=== PATIENT | female | born 1940 | race African-American/Black ===

== ENCOUNTER 2020-01-24 21:36 | Inpatient (IN) | payer OTHER ==
[~2020-01-24] VITALS: Ht 167.6 cm; Wt 138.3 kg
[2020-01-24] MEDS ORDERED: PREDNISONE 20MG TABLET PO STA (22:30)
[2020-01-24] MEDS ORDERED: MAGNESIUM 2 G PREMIX 50 ML IV ONE (22:30)
[2020-01-24] MEDS ORDERED: IPRATROPIUM BROMIDE (0.02%) 0.5MG/2.5ML NEB HHN STA (22:30)
[2020-01-24] MEDS ORDERED: ALBUTEROL (0.083%) 2.5MG/3ML NEB HHN STA (22:30)
[2020-01-24 23:18] LABS: BASOPHILS % 0.8 % (0.0-2.0); EOSINOPHILS % 2.2 % (0.0-5.0); HEMOGLOBIN. 8.2 g/dL (12.0-16.0); LYMPHOCYTES % 7.6 % (20.0-50.0); MEAN CORPUSCULAR VOLUME 82.3 fL (81.0-99.0); MEAN PLATELET VOLUME 6.6 fl (7.4-10.4); MONOCYTES % 5.4 % (2.0-8.0); PLATELET 423 x1000/uL (130-400); RED BLOOD CELL COUNT 3.04 mill/uL (4.2-5.4); RED CELL DISTRIBUTION WIDTH 17.4 % (11.6-14.6)
[2020-01-24 23:29] LABS: D-DIMER 2.19 mg/L FEU (<0.50); PARTIAL THROMBOPLASTIN TIME 20.7 sec (23.4-31.0); PROTHROMBIN TIME 10.8 sec (9.6-11.0)
[2020-01-25] VITALS (7 sets, daily range): BP systolic 132–194; BP diastolic 61–88
[2020-01-25] MEDS ORDERED: GUAIFENESIN 200MG/10ML SUGAR FREE UDC PO PRN (00:15)
[2020-01-25] MEDS ORDERED: ONDANSETRON HCL 4MG/2ML INJ IV PRN (00:15)
[2020-01-25] MEDS ORDERED: IPRATROPIUM/ALBUTEROL 0.5-3(2.5)MG/3ML NEB NEB PRN (00:15)
[2020-01-25] MEDS ORDERED: MAGNESIUM/ALUMINUM HYDROXIDE/SIMETHICONE 30ML UDC PO PRN (00:15)
[2020-01-25] MEDS ORDERED: ACETAMINOPHEN 325MG TABLET PO PRN (00:15)
[2020-01-25] MEDS ORDERED: DOCUSATE SODIUM 100MG CAPSULE PO PRN (00:15)
[2020-01-25 00:29] LABS: CHLORIDE 117 mEq/L (98-107)
[2020-01-25] MEDS ORDERED: FUROSEMIDE 100MG/10ML VIAL IV SCH (01:02)
[2020-01-25] MEDS ORDERED: ALBUTEROL (0.083%) 2.5MG/3ML NEB HHN SCH (01:15)
[2020-01-25] MEDS ORDERED: DEXTROSE 50% WATER 50ML SYRINGE IV SCH ×3 (01:15→10:30)
[2020-01-25] MEDS ORDERED: SODIUM BICARBONATE 8.4% 1 MEQ/ML 50ML SYR IV SCH ×3 (01:15→09:30)
[2020-01-25] MEDS ORDERED: CALCIUM CHLORIDE 1GM/10ML SYR IV SCH ×2 (01:15→03:30)
[2020-01-25] MEDS ORDERED: INSULIN REGULAR (HUMULIN R) 300UNITS/3ML IV SCH (01:15)
[2020-01-25] MEDS: CLONIDINE 0.1MG TABLET PO PRN (02:55)
[2020-01-25] MEDS: CEFTRIAXONE 1 G PREMIX 50 ML IV SCH (03:08)
[2020-01-25] MEDS ORDERED: FUROSEMIDE 100MG/10ML VIAL IVP SCH (03:15)
[2020-01-25] MEDS ORDERED: INSULIN REGULAR (HUMULIN R) UD 100 UNITS/ML SYR SUBCUT SCH (03:30)
[2020-01-25] MEDS: AZITHROMYCIN 500 MG in DEXT 5% WATER 250 ML IV SCH (04:14)
[2020-01-25 07:45] LABS: HEMATOCRIT. 25.8 % (36.0-48.0); HEMOGLOBIN. 8.2 g/dL (12.0-16.0); MEAN CORPUSCULAR HEMOGLOBIN 26.3 pg (28.0-32.0); MEAN CORPUSCULAR VOLUME 82.5 fL (81.0-99.0); MEAN PLATELET VOLUME 6.5 fl (7.4-10.4); PLATELET 426 x1000/uL (130-400); RED BLOOD CELL COUNT 3.13 mill/uL (4.2-5.4); RED CELL DISTRIBUTION WIDTH 17.6 % (11.6-14.6)
[2020-01-25 08:09] LABS: CREATINE KINASE MB FRACTION 1.9 ng/mL (0.5-3.6)
[2020-01-25] MEDS ORDERED: SODIUM POLYSTYRENE SULFONATE 15 G/60 ML BOT PO SCH (09:30)
[2020-01-25] MEDS ORDERED: CALCIUM GLUCONATE 100MG/ML 10ML VIAL IV ONE (09:30)
[2020-01-25] MEDS ORDERED: LACTULOSE 20G/30ML UDC PO SCH (09:30)
[2020-01-25] MEDS ORDERED: CALCIUM GLUCONATE 1000 MG in DEXTROSE 5% WATER 100 ML IV SCH (10:30)
[2020-01-25] MEDS ORDERED: INSULIN REGULAR (HUMULIN R) UD 100 UNITS/ML SYR IV SCH (10:30)
[2020-01-25 10:31] LABS: PLATELET ESTIMATE INCREASED
[2020-01-25] MEDS ORDERED: DEXTROSE 50% WATER 50ML SYRINGE IV ONE (11:05)
[2020-01-25] MEDS: FUROSEMIDE 100MG/10ML VIAL IVP SCH ×2 (12:18→17:57)
[2020-01-25] MEDS: CITRIC ACID/SODIUM CITRATE SOLN 30ML UDC PO SCH ×2 (13:00→17:58)
[2020-01-25 16:25] LABS: CLARITY URINE CLEAR (CLEAR); COLOR URINE YELLOW (YELLOW); KETONES URINE NEGATIVE (NEGATIVE); LEUKOCYTE ESTERASE URINE 1+ (NEGATIVE); NITRITE URINE NEGATIVE (NEGATIVE); OCCULT BLOOD URINE 2+ (NEGATIVE); PROTEIN URINE NEGATIVE (NEGATIVE); SPECIFIC GRAVITY URINE 1.012 (1.005-1.030); UROBILINOGEN URINE 0.2 E.U./dL (0.2-1.0)
[2020-01-25 16:46] LABS: *BARBITURATES SCREEN URINE NEGATIVE (NEGATIVE)
[2020-01-25 16:47] LABS: *AMPHETAMINES SCREEN URINE NEGATIVE (NEGATIVE); *BENZODIAZEPINES SCREEN URINE NEGATIVE (NEGATIVE); *COCAINE SCREEN URINE NEGATIVE (NEGATIVE); CANNABINOID URINE SCREEN NEGATIVE (NEGATIVE); METHADONE URINE SCREEN NEGATIVE (NEGATIVE); OPIATES URINE SCREEN NEGATIVE (NEGATIVE); PHENCYCLIDINE URINE SCREEN NEGATIVE (NEGATIVE)
[2020-01-25 17:40] LABS: CREATINE KINASE MB FRACTION 2.4 ng/mL (0.5-3.6)
[2020-01-25] MEDS ORDERED: SODIUM BICARBONATE 8.4% 1 MEQ/ML 50ML SYR IV NR (18:19)
[2020-01-25] MEDS ORDERED: DEXTROSE 50% WATER 50ML SYRINGE IV NR (18:19)
[2020-01-25] MEDS ORDERED: DEXTROSE 50% WATER 50ML SYRINGE IV PRN (18:30)
[2020-01-25 19:12] LABS: TOTAL IRON BINDING CAPACITY 250 ug/dL (250-450)
[2020-01-25 19:24] LABS: FOLIC ACID (FOLATE) SERUM 11.6 ng/mL (>5.38)
[2020-01-25] MEDS ORDERED: INSULIN REGULAR (HUMULIN R) UD 100 UNITS/ML SYR IV NR (19:30)
[2020-01-25 20:46] LABS: BG BASE EXCESS -6.6 mmol/L (-2.0-2.0); BG CARBOXYHEMOGLOBIN 0.3 % (0.5-1.5); BG DEOXYHEMOGLOBIN 2.4 % (0.0-5.0); BG FRACTION INSPIRED OXYGEN 32; BG METHEMOGLOBIN 0.1 % (0.0-1.5); BG OXYGEN SATURATION 97.6 % (92.0-98.5); BG OXYHEMOGLOBIN 97.2 % (94.0-97.0); BG PCO2 38.2 mmHg (35.0-45.0); BG PH 7.314 (7.350-7.450); BG PO2 115.5 mmHg (75.0-100.0); BG SAMPLE SITE RIGHT RADIAL; BG TOTAL HEMOGLOBIN 10.2 g/dL (12.0-18.0); BG VENT MODE NASAL CANNULA
[2020-01-25] MEDS: ENOXAPARIN 40MG/0.4ML SYR SUBCUT SCH (21:46)
[2020-01-25] MEDS: INSULIN LISPRO 100 UNITS/ML SUBCUT SCH (21:46)
[2020-01-25] MEDS: BLOOD SUGAR DIAGNOSTIC STRIP TEST SCH (21:46)
[2020-01-26] VITALS (41 sets, daily range): BP systolic 113–174; BP diastolic 47–93
[2020-01-26] MEDS: IPRATROPIUM/ALBUTEROL 0.5-3(2.5)MG/3ML NEB HHN SCH (00:15)
[2020-01-26] MEDS: BUDESONIDE 0.5MG/2ML NEB HHN SCH ×2 (00:15→12:23)
[2020-01-26] MEDS: CEFTRIAXONE 1 G PREMIX 50 ML IV SCH (01:55)
[2020-01-26] MEDS: AZITHROMYCIN 500 MG in DEXT 5% WATER 250 ML IV SCH (03:08)
[2020-01-26 07:13] LABS: BASOPHILS % 0.5 % (0.0-2.0); EOSINOPHILS % 0.8 % (0.0-5.0); HEMOGLOBIN. 7.9 g/dL (12.0-16.0); LYMPHOCYTES % 14.5 % (20.0-50.0); MEAN CORPUSCULAR HEMOGLOBIN 26.5 pg (28.0-32.0); MEAN CORPUSCULAR VOLUME 80.4 fL (81.0-99.0); MEAN PLATELET VOLUME 6.6 fl (7.4-10.4); MONOCYTES % 8.9 % (2.0-8.0); NEUTROPHILS % 75.3 % (40.0-76.0); PLATELET 398 x1000/uL (130-400); RED BLOOD CELL COUNT 2.98 mill/uL (4.2-5.4); RED CELL DISTRIBUTION WIDTH 17.7 % (11.6-14.6)
[2020-01-26] MEDS: INSULIN LISPRO 100 UNITS/ML SUBCUT SCH ×4 (08:00→21:49)
[2020-01-26] MEDS: BLOOD SUGAR DIAGNOSTIC STRIP TEST SCH ×4 (08:00→21:46)
[2020-01-26] MEDS: CITRIC ACID/SODIUM CITRATE SOLN 30ML UDC PO SCH (09:24)
[2020-01-26] MEDS: FUROSEMIDE 40MG/4ML VIAL IV SCH ×2 (09:54→17:07)
[2020-01-26] MEDS ORDERED: SODIUM POLYSTYRENE SULFONATE 15 G/60 ML BOT PO NR (12:00)
[2020-01-26] MEDS ORDERED: FLUTICASONE PROPIONATE 50MCG/SPRAY BOTTLE BOTHNSTRLS SCH (21:00)
[2020-01-26] MEDS: ENOXAPARIN 40MG/0.4ML SYR SUBCUT SCH (21:47)
[2020-01-27] VITALS (23 sets, daily range): BP systolic 125–185; BP diastolic 55–99
[2020-01-27 06:00] LABS: BASOPHILS % 0.8 % (0.0-2.0); HEMATOCRIT. 26.2 % (36.0-48.0); HEMOGLOBIN. 8.6 g/dL (12.0-16.0); LYMPHOCYTES % 25.2 % (20.0-50.0); MEAN CORPUSCULAR HEMOGLOBIN 26.5 pg (28.0-32.0); MEAN CORPUSCULAR VOLUME 80.4 fL (81.0-99.0); MEAN PLATELET VOLUME 6.4 fl (7.4-10.4); PLATELET 408 x1000/uL (130-400); RED BLOOD CELL COUNT 3.26 mill/uL (4.2-5.4); RED CELL DISTRIBUTION WIDTH 17.6 % (11.6-14.6)
[2020-01-27] MEDS: BLOOD SUGAR DIAGNOSTIC STRIP TEST SCH ×3 (07:30→17:30)
[2020-01-27] MEDS: BUDESONIDE 0.5MG/2ML NEB HHN SCH (07:56)
[2020-01-27] MEDS: IPRATROPIUM/ALBUTEROL 0.5-3(2.5)MG/3ML NEB HHN SCH ×2 (07:56→16:44)
[2020-01-27] MEDS ORDERED: LORATADINE 10MG TABLET PO SCH (09:00)
[2020-01-27] MEDS: FUROSEMIDE 40MG/4ML VIAL IV SCH ×2 (09:15→17:39)
[2020-01-27] MEDS: INSULIN LISPRO 100 UNITS/ML SUBCUT SCH ×3 (09:27→17:39)
[2020-01-27] MEDS ORDERED: PROMETHAZINE/DEXTROMETHORPHAN 6.25-15MG/5ML BOTTLE 120ML PO PRN (12:00)
[2020-01-27] MEDS: CLONIDINE 0.1MG TABLET PO PRN (18:30)
== END 2020-01-27 21:40 | disposition short-term general hospital (02) | DRG 291 ==
LOC: ER 21:36 → MICUSO 23:14 → ENRESERV 23:58 → 7WST 01-25 02:34 → 5EST 01-25 22:56
PROVIDERS: ADMIT Internal Medicine; ATTEND Internal Medicine
DX: I13.0 Hypertensive heart and chronic kidney disease with heart failure and stage 1 through stage 4 chronic kidney disease, or unspecified chronic kidney disease (principal); J96.00 Acute respiratory failure, unspecified whether with hypoxia or hypercapnia; I50.43 Acute on chronic combined systolic (congestive) and diastolic (congestive) heart failure; N17.9 Acute kidney failure, unspecified; E87.2 Acidosis; Z68.42 Body mass index [BMI] 45.0-49.9, adult; J45.20 Mild intermittent asthma, uncomplicated; E87.5 Hyperkalemia; I16.0 Hypertensive urgency; E11.65 Type 2 diabetes mellitus with hyperglycemia; D64.9 Anemia, unspecified; J00 Acute nasopharyngitis [common cold]; E66.01 Morbid (severe) obesity due to excess calories; Z20.828 Contact with and (suspected) exposure to other viral communicable diseases; N18.9 Chronic kidney disease, unspecified; E11.22 Type 2 diabetes mellitus with diabetic chronic kidney disease; Z03.818 Encounter for observation for suspected exposure to other biological agents ruled out; Z79.84 Long term (current) use of oral hypoglycemic drugs; Z90.710 Acquired absence of both cervix and uterus
CPT/HCPCS: 36415; 36600; 71045; 76770; 78580; 80048; 80053; 80061; 80305; 81003; 82375; 82550; 82553; 82570; 82607; 82728; 82746; 82805; 82962; 83036; 83540; 83550; 83615; 83735; 83880; 84132; 84145; 84156; 84484; 85025; 85044; 85379; 86140; 93005; 93306; 96365; 99285; J0456; J0610; J0696; J1650; J1815; J1940; J3475; J3490; J7060; J7512; J7626; U0003-CS

== ENCOUNTER 2020-05-24 14:15 | Emergency (ER) | payer MEDICARE, OTHER ==
[~2020-05-24] VITALS: Ht 165.1 cm; Wt 98.0 kg
[2020-05-24] MEDS ORDERED: METHYLPREDNISOLONE SOD SUCC 125 MG/2 ML VIAL IV STA (14:31)
[2020-05-24] MEDS ORDERED: MAGNESIUM 2 G PREMIX 50 ML IV STA (14:31)
[2020-05-24] MEDS ORDERED: ALBUTEROL 6.7GM HFA INHALER ORI ONE (14:45)
[2020-05-24] MEDS ORDERED: AZITHROMYCIN 500 MG in DEXT 5% WATER 250 ML IV STA (14:47)
[2020-05-24] MEDS ORDERED: CEFTRIAXONE 1 G PREMIX 50 ML IV ONE (15:00)
[2020-05-24] MEDS ORDERED: ACETAMINOPHEN 325MG TABLET PO ONE (15:00)
[2020-05-24] MEDS ORDERED: SODIUM CHLORIDE 0.9% 1000ML BAG (SEPSIS BOLUS) IV ONE (15:00)
[2020-05-24 15:13] LABS: CHLORIDE 106 mEq/L (98-107)
[2020-05-24 15:15] LABS: HEMATOCRIT. 32.7 % (36.0-48.0); HEMOGLOBIN. 10.6 g/dL (12.0-16.0); MEAN CORPUSCULAR HEMOGLOBIN 25.9 pg (28.0-32.0); MEAN CORPUSCULAR VOLUME 79.9 fL (81.0-99.0); MEAN PLATELET VOLUME 7.3 fl (7.4-10.4); PLATELET 340 x1000/uL (130-400); RED BLOOD CELL COUNT 4.09 mill/uL (4.2-5.4); RED CELL DISTRIBUTION WIDTH 18.7 % (11.6-14.6)
[2020-05-24 15:17] LABS: CLARITY URINE CLOUDY (CLEAR); COLOR URINE YELLOW (YELLOW); KETONES URINE NEGATIVE (NEGATIVE); LEUKOCYTE ESTERASE URINE 3+ (NEGATIVE); NITRITE URINE POSITIVE (NEGATIVE); OCCULT BLOOD URINE 2+ (NEGATIVE); PROTEIN URINE TRACE (NEGATIVE); SPECIFIC GRAVITY URINE 1.015 (1.005-1.030); UROBILINOGEN URINE 0.2 E.U./dL (0.2-1.0)
[2020-05-24 15:24] LABS: CREATINE KINASE 65 IU/L (26-192)
[2020-05-24 15:41] LABS: D-DIMER 2.89 mg/L FEU (<0.50); INR 1.1; PROTHROMBIN TIME 11.3 sec (9.6-11.0)
[2020-05-24] MEDS ORDERED: FUROSEMIDE 20MG/2ML VIAL IVP ONE (16:30)
[2020-05-24 17:43] LABS: PLATELET ESTIMATE NORMAL
[2020-05-24] MEDS ORDERED: INSULIN LISPRO 100 UNITS/ML SUBCUT ONE (20:15)
[2020-05-24 21:17] VITALS: BP 148/76
== END 2020-05-24 21:40 | disposition short-term general hospital (02) ==
LOC: ER 14:33 → CANBEDREQ 22:13
DX: Z03.818 Encounter for observation for suspected exposure to other biological agents ruled out (principal); A41.9 Sepsis, unspecified organism; N39.0 Urinary tract infection, site not specified; S91.202A Unspecified open wound of left great toe with damage to nail, initial encounter; X58.XXXA Exposure to other specified factors, initial encounter; Y93.89 Activity, other specified; Y92.89 Other specified places as the place of occurrence of the external cause
CPT/HCPCS: 36415; 71045; 73660; 80053; 81003; 82550; 82728; 82962; 83605; 83615; 83690; 83880; 84145; 84484; 85025; 85379; 85384; 85610; 86140; 87040; 87077; 87086; 87186; 87635; 93005; 94640; 96365; 96367; 96368; 96372; 96375; 99291; C9803; J0456; J0696; J1815; J1940; J2930; J3475; J7030; J7060

== ENCOUNTER 2022-10-01 00:52 | Emergency (ER) | payer MEDICARE, OTHER ==
[~2022-10-01] VITALS: Ht 162.6 cm; Wt 118.0 kg
[~2022-10-01 00:52] MED LIST: ACET-2708 PO; ALBU18HF2 IH; ASPI-1406 MT; B12/1TAB PO; CYAN-33 MT; DIPH-892 PO; FERR236T3 MT; FURO40TA5 PO; GABA-532 PO; GLIP10TA10 MT; HYDR100T26 MT; OMEP20CA14 MT; SODI325T MT; VITA-261 PO
[2022-10-01 01:24] LABS: BASOPHILS % 0.8 % (0.0-2.0); EOSINOPHILS % 1.5 % (0.0-5.0); HEMATOCRIT. 29.3 % (36.0-48.0); HEMOGLOBIN. 9.3 g/dL (12.0-16.0); LYMPHOCYTES % 12.1 % (20.0-50.0); MEAN CORPUSCULAR HEMOGLOBIN 26.3 pg (28.0-32.0); MEAN CORPUSCULAR VOLUME 82.8 fL (81.0-99.0); MEAN PLATELET VOLUME 6.5 fl (7.4-10.4); MONOCYTES % 9.5 % (2.0-8.0); NEUTROPHILS % 76.1 % (40.0-76.0); PLATELET 330 x1000/uL (130-400); RED BLOOD CELL COUNT 3.54 mill/uL (4.2-5.4); RED CELL DISTRIBUTION WIDTH 20.6 % (11.6-14.6)
[2022-10-01 01:30] LABS: CHLORIDE 111 mEq/L (98-107)
[2022-10-01 01:41] LABS: ETHANOL BLOOD < 10 mg/dL
[2022-10-01 01:44] LABS: PROTHROMBIN TIME 11.2 sec (9.6-11.0)
[2022-10-01] MEDS ORDERED: FUROSEMIDE 40MG/4ML VIAL IV NR ×2 (02:30→04:30)
[2022-10-01] MEDS ORDERED: NITROGLYCERIN OINT 1GM/INCH UDPKT TD NR (02:30)
[2022-10-01] MEDS ORDERED: INSULIN REGULAR (HUMULIN R) 300UNITS/3ML VIAL SUBCUT NR (03:00)
[2022-10-01] MEDS ORDERED: ACETAMINOPHEN WITH CODEINE 300/30MG TABLET PO ONE (04:00)
[2022-10-01 07:40] VITALS: BP 137/59
== END 2022-10-01 08:15 | disposition short-term general hospital (02) ==
LOC: ER 00:54 → CANBEDREQ 11:26
DX: I11.0 Hypertensive heart disease with heart failure (principal); I50.9 Heart failure, unspecified; J45.909 Unspecified asthma, uncomplicated; E11.65 Type 2 diabetes mellitus with hyperglycemia; Z79.899 Other long term (current) drug therapy; E87.5 Hyperkalemia; Z20.822 Contact with and (suspected) exposure to COVID-19
CPT/HCPCS: 36415; 71045; 80053; 80320; 82962; 83690; 83880; 84484; 85025; 85610; 87426; 93005; 96372; 96374; 99285; C9803; J1815; J1940; G0480

== ENCOUNTER 2023-01-04 21:47 | Inpatient (IN) | payer OTHER ==
[~2023-01-04] VITALS: Ht 167.6 cm; Wt 115.7 kg
[~2023-01-04 21:47] MED LIST changes: -DIPH-892 PO; +DIPH-954 PO
[2023-01-04] MEDS ORDERED: MORPHINE SULFATE 2 MG/ML CPJ (NOT FOR IM USE) IV NR (23:30)
[2023-01-04] MEDS ORDERED: FUROSEMIDE 40MG/4ML VIAL IVP NR (23:30)
[2023-01-04 23:56] LABS: BASOPHILS % 0.6 % (0.0-2.0); EOSINOPHILS % 1.5 % (0.0-5.0); HEMOGLOBIN. 11.3 g/dL (12.0-16.0); LYMPHOCYTES % 10.6 % (20.0-50.0); MEAN CORPUSCULAR HEMOGLOBIN 26.1 pg (28.0-32.0); MEAN CORPUSCULAR VOLUME 80.9 fL (81.0-99.0); MEAN PLATELET VOLUME 6.4 fl (7.4-10.4); MONOCYTES % 7.6 % (2.0-8.0); NEUTROPHILS % 79.7 % (40.0-76.0); PLATELET 396 x1000/uL (130-400); RED BLOOD CELL COUNT 4.32 mill/uL (4.2-5.4); RED CELL DISTRIBUTION WIDTH 21.4 % (11.6-14.6)
[2023-01-04 23:58] LABS: CHLORIDE 105 mEq/L (98-107)
[2023-01-05 00:01] LABS: PROTHROMBIN TIME 11.1 sec (9.6-11.0)
[2023-01-05] MEDS ORDERED: LIDOCAINE/EPINEPHR/TETRACAINE 3ML TP ONE (00:15)
[2023-01-05] MEDS ORDERED: LIDOCAINE/PRILOCAINE CREAM 5 GM TUBE TOP ONE (00:15)
[2023-01-05] MEDS ORDERED: MORPHINE SULFATE 4 MG/ML CPJ (NOT FOR IM USE) IV ONE (00:30)
[2023-01-05] MEDS ORDERED: SODIUM BICARBONATE 8.4% 1 MEQ/ML 50ML SYR IV NR (00:30)
[2023-01-05] MEDS ORDERED: INSULIN REGULAR (HUMULIN R) 300UNITS/3ML VIAL IV NR (00:30)
[2023-01-05] MEDS ORDERED: MAGNESIUM/ALUMINUM HYDROXIDE/SIMETHICONE 30ML UDC PO PRN (03:15)
[2023-01-05] MEDS ORDERED: ACETAMINOPHEN 325MG TABLET PO PRN ×2 (03:15)
[2023-01-05] MEDS ORDERED: DIPHENHYDRAMINE 50MG/ML VIAL IV PRN (03:15)
[2023-01-05] MEDS ORDERED: ONDANSETRON HCL 4MG/2ML INJ IV PRN (03:15)
[2023-01-05] MEDS ORDERED: DEXTROSE 50% WATER 50ML SYRINGE IV PRN (03:15)
[2023-01-05] MEDS ORDERED: CLONIDINE 0.1MG TABLET PO PRN (03:15)
[2023-01-05] MEDS: SODIUM CHLORIDE 0.9% INJ 3ML FLUSH IVF SCH ×3 (06:00→21:21)
[2023-01-05] MEDS ORDERED: CEFTRIAXONE 1GM PREMIX 50 ML IV SCH (06:00)
[2023-01-05 08:00] VITALS: BP 82/64
[2023-01-05] MEDS: BLOOD SUGAR DIAGNOSTIC STRIP TEST SCH ×4 (08:17→21:01)
[2023-01-05] MEDS: INSULIN LISPRO 100 UNITS/ML SUBCUT SCH ×4 (08:38→21:00)
[2023-01-05] MEDS: FAMOTIDINE 20MG TABLET PO SCH (11:25)
[2023-01-05] MEDS: CEFTRIAXONE 1,000 MG in DEXTROSE 5% WATER 50 ML IV SCH (11:25)
[2023-01-05 12:00] VITALS: BP 116/57
[2023-01-05 12:26] VITALS: BP 140/77
[2023-01-05 16:00] VITALS: BP 126/67
[2023-01-05] MEDS ORDERED: NALOXONE HCL 0.4MG/ML VIAL IV PRN (17:15)
[2023-01-05] MEDS: HYDROCODONE/ACETAMINOPHEN 5/325MG TABLET PO PRN (17:38)
[2023-01-05 17:57] LABS: CLARITY URINE TURBID (CLEAR); COLOR URINE YELLOW (YELLOW); KETONES URINE NEGATIVE (NEGATIVE); LEUKOCYTE ESTERASE URINE 3+ (NEGATIVE); NITRITE URINE NEGATIVE (NEGATIVE); OCCULT BLOOD URINE 1+ (NEGATIVE); PROTEIN URINE 1+ (NEGATIVE); SPECIFIC GRAVITY URINE 1.016 (1.005-1.030); UROBILINOGEN URINE 0.2 E.U./dL (0.2-1.0)
[2023-01-05 20:00] VITALS: BP 105/49
[2023-01-06] VITALS: BP 107/39
[2023-01-06 04:00] VITALS: BP 120/98
[2023-01-06] MEDS: SODIUM CHLORIDE 0.9% INJ 3ML FLUSH IVF SCH ×3 (05:04→21:00)
[2023-01-06 05:50] LABS: HEMATOCRIT. 31.2 % (36.0-48.0); HEMOGLOBIN. 10.3 g/dL (12.0-16.0); MEAN CORPUSCULAR HEMOGLOBIN 26.4 pg (28.0-32.0); MEAN CORPUSCULAR VOLUME 80.2 fL (81.0-99.0); MEAN PLATELET VOLUME 6.5 fl (7.4-10.4); PLATELET 356 x1000/uL (130-400); RED CELL DISTRIBUTION WIDTH 21.7 % (11.6-14.6)
[2023-01-06] MEDS: BLOOD SUGAR DIAGNOSTIC STRIP TEST SCH ×4 (06:47→20:59)
[2023-01-06] MEDS: INSULIN LISPRO 100 UNITS/ML SUBCUT SCH ×4 (07:52→21:00)
[2023-01-06 08:02] VITALS: BP 119/46
[2023-01-06] MEDS: HYDROCODONE/ACETAMINOPHEN 5/325MG TABLET PO PRN ×2 (09:34→20:59)
[2023-01-06] MEDS ORDERED: ALBUTEROL (0.083%) 2.5MG/3ML NEB HHN NR (11:00)
[2023-01-06] MEDS ORDERED: SODIUM POLYSTYRENE SULFONATE 15 G/60 ML BOT PO NR (11:00)
[2023-01-06 11:56] VITALS: BP 110/42
[2023-01-06] MEDS: CEFTRIAXONE 1,000 MG in DEXTROSE 5% WATER 50 ML IV SCH (12:01)
[2023-01-06 12:50] LABS: HEPATITIS B SURFACE ANTIGEN NEGATIVE
[2023-01-06] MEDS: SODIUM BICARBONATE 650 MG TABLET PO SCH ×2 (12:54→17:06)
[2023-01-06 15:08] LABS: PLATELET ESTIMATE NORMAL
[2023-01-06 15:40] VITALS: BP 120/76
[2023-01-06 20:39] VITALS: BP 129/57
[2023-01-07 00:05] VITALS: BP 100/58
[2023-01-07 04:00] VITALS: BP 118/55
[2023-01-07] MEDS: SODIUM CHLORIDE 0.9% INJ 3ML FLUSH IVF SCH ×3 (05:08→21:30)
[2023-01-07] MEDS: BLOOD SUGAR DIAGNOSTIC STRIP TEST SCH ×4 (06:40→21:26)
[2023-01-07] MEDS: INSULIN LISPRO 100 UNITS/ML SUBCUT SCH ×4 (08:00→21:30)
[2023-01-07 08:13] VITALS: BP 126/50
[2023-01-07] MEDS ORDERED: ENOXAPARIN 40MG/0.4ML SYR SUBCUT SCH (09:00)
[2023-01-07] MEDS: FAMOTIDINE 20MG TABLET PO SCH (09:28)
[2023-01-07] MEDS: SODIUM BICARBONATE 650 MG TABLET PO SCH ×3 (09:28→17:00)
[2023-01-07 11:46] VITALS: BP 118/54
[2023-01-07] MEDS: CEFTRIAXONE 1,000 MG in DEXTROSE 5% WATER 50 ML IV SCH (13:01)
[2023-01-07 15:55] VITALS: BP 107/45
[2023-01-07 17:05] LABS: BASOPHILS % 0.2 % (0.0-2.0); HEMATOCRIT. 29.3 % (36.0-48.0); HEMOGLOBIN. 9.3 g/dL (12.0-16.0); LYMPHOCYTES % 8.3 % (20.0-50.0); MEAN CORPUSCULAR HEMOGLOBIN 25.9 pg (28.0-32.0); MEAN CORPUSCULAR VOLUME 82.1 fL (81.0-99.0); MEAN PLATELET VOLUME 6.5 fl (7.4-10.4); MONOCYTES % 8.3 % (2.0-8.0); NEUTROPHILS % 80.2 % (40.0-76.0); PLATELET 317 x1000/uL (130-400); RED BLOOD CELL COUNT 3.57 mill/uL (4.2-5.4); RED CELL DISTRIBUTION WIDTH 21.7 % (11.6-14.6)
[2023-01-07] MEDS ORDERED: INSULIN GLARGINE 100 UNITS/ML SUBCUT SCH (22:00)
[2023-01-07 22:50] VITALS: BP 135/54
== END 2023-01-07 23:40 | disposition short-term general hospital (02) | DRG 682 ==
LOC: ER 21:47 → 7WST 01-05 02:15 → ENRESERV 01-05 04:09
PROVIDERS: ADMIT Internal Medicine; ATTEND Internal Medicine
DX: N17.9 Acute kidney failure, unspecified (principal); E43 Unspecified severe protein-calorie malnutrition; J96.00 Acute respiratory failure, unspecified whether with hypoxia or hypercapnia; I13.0 Hypertensive heart and chronic kidney disease with heart failure and stage 1 through stage 4 chronic kidney disease, or unspecified chronic kidney disease; L97.919 Non-pressure chronic ulcer of unspecified part of right lower leg with unspecified severity; L97.929 Non-pressure chronic ulcer of unspecified part of left lower leg with unspecified severity; L03.115 Cellulitis of right lower limb; L03.116 Cellulitis of left lower limb; I48.92 Unspecified atrial flutter; N39.0 Urinary tract infection, site not specified; I50.32 Chronic diastolic (congestive) heart failure; Z68.41 Body mass index [BMI] 40.0-44.9, adult; E87.1 Hypo-osmolality and hyponatremia; E87.5 Hyperkalemia; E66.01 Morbid (severe) obesity due to excess calories; B96.20 Unspecified Escherichia coli [E. coli] as the cause of diseases classified elsewhere; E11.40 Type 2 diabetes mellitus with diabetic neuropathy, unspecified; N18.30 Chronic kidney disease, stage 3 unspecified; I83.009 Varicose veins of unspecified lower extremity with ulcer of unspecified site; D63.8 Anemia in other chronic diseases classified elsewhere; I48.0 Paroxysmal atrial fibrillation; E11.22 Type 2 diabetes mellitus with diabetic chronic kidney disease; Z88.0 Allergy status to penicillin; Z79.4 Long term (current) use of insulin
CPT/HCPCS: 36415; 71045; 76770; 80048; 80053; 81003; 82962; 83735; 83880; 84100; 84132; 84443; 84484; 85025; 86803; 87077; 87186; 87340; 93005; 93306; 93970; 99291; J0696; J1650; J1815; J1940; J2270; J2405; J3490; J7060; A4315

== ENCOUNTER 2023-05-02 11:40 | Emergency (ER) | payer OTHER ==
[~2023-05-02] VITALS: Ht 157.5 cm; Wt 81.0 kg
[2023-05-02 11:47] VITALS: O2SAT 96
[2023-05-02 13:21] LABS: BASOPHILS % 0.4 % (0.0-2.0); EOSINOPHILS % 9.4 % (0.0-5.0); HEMATOCRIT. 24.5 % (36.0-48.0); HEMOGLOBIN. 7.7 g/dL (12.0-16.0); LYMPHOCYTES % 19.8 % (20.0-50.0); MEAN CORPUSCULAR HEMOGLOBIN 26.3 pg (28.0-32.0); MEAN CORPUSCULAR HGB CONC 31.6 g/dL (31.0-37.0); MEAN CORPUSCULAR VOLUME 83.3 fL (81.0-99.0); MEAN PLATELET VOLUME 6.5 fl (7.4-10.4); MONOCYTES % 14.1 % (2.0-8.0); NEUTROPHILS % 56.3 % (40.0-76.0); PLATELET 374 x1000/uL (130-400); RED BLOOD CELL COUNT 2.94 mill/uL (4.2-5.4); RED CELL DISTRIBUTION WIDTH 22.5 % (11.6-14.6); WHITE BLOOD COUNT 6.3 x1000/uL (4.5-11.0)
[2023-05-02 13:24] LABS: ADD RBC MORPHOLOGY YES; DIFFERENTIAL COMMENT 1
[2023-05-02 13:27] LABS: CHLORIDE 110 mEq/L (98-107); INDEX HEMOLYSI 1 (1-3); INDEX ICTERIC 1 (1-4); INDEX LIPEMIC 1 (1-3); POTASSIUM 3.7 mEq/L (3.5-5.1); SODIUM 139 mEq/L (136-145)
[2023-05-02 13:30] LABS: INR 1.2; PROTHROMBIN TIME 12.6 sec (9.6-11.0)
[2023-05-02] MEDS ORDERED: ONDANSETRON HCL 4MG/2ML INJ IV NR (13:50)
[2023-05-02] MEDS ORDERED: ONDANSETRON HCL 4MG/2ML INJ IV STA (13:50)
[2023-05-02 13:56] LABS: ALANINE AMINOTRANSFERASE 15 IU/L (13-61); ALBUMIN 2.3 g/dL (3.4-5.0); ASPARTATE AMINOTRANSFERASE 9 IU/L (15-37); BILIRUBIN TOTAL 0.2 mg/dL (0.1-1.0); CALCIUM 8.1 mg/dL (8.5-10.1); CARBON DIOXIDE 26 mEq/L (21-32); CREATININE 2.3 mg/dL (0.6-1.3); GLUCOSE 147 mg/dL (70-105); PROTEIN TOTAL 7.5 g/dL (6.0-8.3); TROPONIN I HIGH SENSITIVITY 20 ng/L (<54); UREA NITROGEN BLOOD 53 mg/dL (7-21)
[2023-05-02 14:20] LABS: ANISOCYTOSIS 2+; PLATELET ESTIMATE NORMAL
[2023-05-02 15:06] LABS: NT PRO B-TYPE NATRIURETIC PEP 5337 pg/mL (5-125)
[2023-05-02] MEDS ORDERED: SODIUM CHLORIDE 0.9% 500 ML IV ONE (16:15)
[2023-05-02 18:31] VITALS: BP 122/50; PULSE 69; RESP 12; TEMP 98.6
== END 2023-05-02 19:45 | disposition short-term general hospital (02) ==
LOC: ER 11:40 → CANBEDREQ 18:19 → ER 19:45
DX: U07.1 COVID-19 (principal); N17.9 Acute kidney failure, unspecified; I11.0 Hypertensive heart disease with heart failure; I50.9 Heart failure, unspecified; E11.9 Type 2 diabetes mellitus without complications; Z79.899 Other long term (current) drug therapy; Z88.0 Allergy status to penicillin
CPT/HCPCS: 99291; 96360; 96361; 87426; 80053; 83880; 85025; 85610; 84484; 36415; 71045; 93005; J7040; C9803

== ENCOUNTER 2023-05-14 14:57 | Emergency (ER) | payer OTHER ==
[~2023-05-14] VITALS: Ht 175.3 cm; Wt 10.0 kg
[2023-05-14 15:00] VITALS: O2SAT 100
[2023-05-14 16:08] LABS: BASOPHILS % 0.3 % (0.0-2.0); EOSINOPHILS % 2.1 % (0.0-5.0); HEMOGLOBIN. 8.4 g/dL (12.0-16.0); LYMPHOCYTES % 20.9 % (20.0-50.0); MEAN CORPUSCULAR HEMOGLOBIN 26.4 pg (28.0-32.0); MEAN CORPUSCULAR VOLUME 85.2 fL (81.0-99.0); MEAN PLATELET VOLUME 6.1 fl (7.4-10.4); MONOCYTES % 7.5 % (2.0-8.0); NEUTROPHILS % 69.2 % (40.0-76.0); PLATELET 374 x1000/uL (130-400); RED BLOOD CELL COUNT 3.17 mill/uL (4.2-5.4); RED CELL DISTRIBUTION WIDTH 22.4 % (11.6-14.6); WHITE BLOOD COUNT 7.7 x1000/uL (4.5-11.0)
[2023-05-14 16:09] LABS: ADD RBC MORPHOLOGY YES; DIFFERENTIAL COMMENT 1
[2023-05-14 16:15] LABS: CHLORIDE 112 mEq/L (98-107); INDEX HEMOLYSI 1 (1-3); INDEX ICTERIC 1 (1-4); INDEX LIPEMIC 1 (1-3); POTASSIUM 3.9 mEq/L (3.5-5.1); SODIUM 141 mEq/L (136-145)
[2023-05-14 16:23] LABS: ALANINE AMINOTRANSFERASE 14 IU/L (13-61); ALBUMIN 2.3 g/dL (3.4-5.0); ASPARTATE AMINOTRANSFERASE 11 IU/L (15-37); BILIRUBIN TOTAL 0.2 mg/dL (0.1-1.0); CALCIUM 8.7 mg/dL (8.5-10.1); CARBON DIOXIDE 27 mEq/L (21-32); CREATININE 1.5 mg/dL (0.6-1.3); GLUCOSE 172 mg/dL (70-105); NT PRO B-TYPE NATRIURETIC PEP 7290 pg/mL (5-125); PROTEIN TOTAL 7.1 g/dL (6.0-8.3); TROPONIN I HIGH SENSITIVITY 23 ng/L (<54); UREA NITROGEN BLOOD 48 mg/dL (7-21)
[2023-05-14 17:32] LABS: ANISOCYTOSIS 2+; HYPOCHROMASIA 1+; PLATELET ESTIMATE NORMAL
[2023-05-14 18:35] LABS: TROPONIN I HIGH SENSITIVITY 21 ng/L (<54)
[2023-05-14] MEDS ORDERED: ASPIRIN 325MG TABLET PO ONE (20:15)
[2023-05-14] MEDS ORDERED: FUROSEMIDE 40MG/4ML VIAL IVP ONE (20:15)
[2023-05-14] MEDS: FUROSEMIDE 40MG/4ML VIAL IVP NR (23:27)
[2023-05-14] MEDS: ASPIRIN 325MG TABLET PO NR (23:27)
[2023-05-15 00:48] VITALS: BP 150/60; PULSE 65; RESP 16; TEMP 97.5
== END 2023-05-15 00:55 | disposition short-term general hospital (02) ==
LOC: ER 14:57 → EDBEDREQ 16:39 → EDBEDREQTM 16:39 → ER 05-15 00:55 → CANBEDREQ 05-16 19:39
DX: D64.9 Anemia, unspecified (principal); R53.1 Weakness; N17.9 Acute kidney failure, unspecified; I11.0 Hypertensive heart disease with heart failure; I50.9 Heart failure, unspecified; E11.9 Type 2 diabetes mellitus without complications; Z79.899 Other long term (current) drug therapy; Z20.822 Contact with and (suspected) exposure to COVID-19
CPT/HCPCS: 99285; 96374; 71045; 87426; 80053; 83880; 85025; 84484; 36415; 93005; J1940; C9803

== ENCOUNTER 2023-12-21 12:51 | Emergency (ER) | payer OTHER ==
[~2023-12-21] VITALS: Ht 175.3 cm; Wt 110.0 kg
[2023-12-21 13:51] LABS: BASOPHILS % 1.1 % (0.0-2.0); HEMOGLOBIN. 10.7 g/dL (12.0-16.0); LYMPHOCYTES % 28.9 % (20.0-50.0); MEAN CORPUSCULAR HEMOGLOBIN 27.6 pg (28.0-32.0); MEAN CORPUSCULAR HGB CONC 32.5 g/dL (31.0-37.0); MEAN CORPUSCULAR VOLUME 84.9 fL (81.0-99.0); MEAN PLATELET VOLUME 6.6 fl (7.4-10.4); MONOCYTES % 8.7 % (2.0-8.0); NEUTROPHILS % 58.3 % (40.0-76.0); PLATELET 399 x1000/uL (130-400); RED BLOOD CELL COUNT 3.89 mill/uL (4.2-5.4); RED CELL DISTRIBUTION WIDTH 21.9 % (11.6-14.6); WHITE BLOOD COUNT 6.2 x1000/uL (4.5-11.0)
[2023-12-21] MEDS: FUROSEMIDE 40MG/4ML VIAL IV ONE (13:52)
[2023-12-21] MEDS: ASPIRIN 81MG TABLET PO ONE (13:52)
[2023-12-21] MEDS: NITROGLYCERIN OINT 1GM/INCH UDPKT TD ONE (13:53)
[2023-12-21 14:01] LABS: CHLORIDE 108 mEq/L (98-107); POTASSIUM 4.2 mEq/L (3.5-5.1); SODIUM 140 mEq/L (136-145)
[2023-12-21 14:02] LABS: CALCIUM 8.6 mg/dL (8.7-10.4); CARBON DIOXIDE 26 mEq/L (21-32)
[2023-12-21 14:07] LABS: CREATININE 1.6 mg/dL (0.6-1.0); GLUCOSE 105 mg/dL (70-105); UREA NITROGEN BLOOD 42 mg/dL (9-23)
[2023-12-21 14:08] VITALS: PULSE 70; RESP 20; O2SAT 100
[2023-12-21] MEDS: ALBUTEROL (0.083%) 2.5MG/3ML NEB HHN STA (14:08)
[2023-12-21 14:09] LABS: ALANINE AMINOTRANSFERASE 9 IU/L (10-49); ALBUMIN 3.7 g/dL (3.2-4.8); ASPARTATE AMINOTRANSFERASE 20 IU/L (<34); TROPONIN I HIGH SENSITIVITY 30 ng/L (3.0-34)
[2023-12-21 14:10] LABS: BILIRUBIN TOTAL 0.3 mg/dL (0.1-1.0); ETHANOL BLOOD < 10 mg/dL (<10); PROTEIN TOTAL 7.8 g/dL (6.0-8.3)
[2023-12-21 18:14] VITALS: BP 145/55; PULSE 63; RESP 15; TEMP 98.1
== END 2023-12-21 18:50 | disposition short-term general hospital (02) ==
LOC: ER 14:25 → CANBEDREQ 15:28 → ER 18:50
DX: I11.0 Hypertensive heart disease with heart failure (principal); I50.9 Heart failure, unspecified; E11.9 Type 2 diabetes mellitus without complications; Z79.899 Other long term (current) drug therapy
CPT/HCPCS: 80053; 80320; 82962; 83880; 85025; 84484; 87804 ×2; 36415; 71045; 93005; 94644; 96374; 99285; J1940; G0480

== ENCOUNTER 2024-02-11 22:05 | Emergency (ER) | payer OTHER ==
[~2024-02-11] VITALS: Ht 167.6 cm; Wt 85.0 kg
[2024-02-11] MEDS ORDERED: IPRATROPIUM BROMIDE (0.02%) 0.5MG/2.5ML NEB HHN STA (22:35)
[2024-02-11 23:29] LABS: BASOPHILS % 0.3 % (0.0-2.0); EOSINOPHILS % 3.1 % (0.0-5.0); HEMATOCRIT. 31.3 % (36.0-48.0); HEMOGLOBIN. 10.1 g/dL (12.0-16.0); MEAN CORPUSCULAR HGB CONC 32.4 g/dL (31.0-37.0); MEAN CORPUSCULAR VOLUME 86.4 fL (81.0-99.0); MEAN PLATELET VOLUME 7.4 fl (7.4-10.4); MONOCYTES % 13.9 % (2.0-8.0); NEUTROPHILS % 29.7 % (40.0-76.0); PLATELET 229 x1000/uL (130-400); RED BLOOD CELL COUNT 3.62 mill/uL (4.2-5.4); RED CELL DISTRIBUTION WIDTH 21.8 % (11.6-14.6); WHITE BLOOD COUNT 4.2 x1000/uL (4.5-11.0)
[2024-02-11 23:36] LABS: CHLORIDE 105 mEq/L (98-107); POTASSIUM 3.5 mEq/L (3.5-5.1); SODIUM 141 mEq/L (136-145)
[2024-02-11 23:37] LABS: CARBON DIOXIDE 27 mEq/L (21-32)
[2024-02-11 23:38] LABS: CALCIUM 8.4 mg/dL (8.7-10.4)
[2024-02-11 23:42] LABS: CREATININE 1.8 mg/dL (0.6-1.0); GLUCOSE 191 mg/dL (70-105); UREA NITROGEN BLOOD 52 mg/dL (9-23)
[2024-02-11 23:43] LABS: TROPONIN I HIGH SENSITIVITY 19 ng/L (3.0-34)
[2024-02-11 23:46] LABS: ETHANOL BLOOD < 10 mg/dL (<10)
[2024-02-12] MEDS: ALBUTEROL (0.083%) 2.5MG/3ML NEB HHN NR (00:51)
[2024-02-12] MEDS: IPRATROPIUM BROMIDE (0.02%) 0.5MG/2.5ML NEB HHN NR (00:51)
[2024-02-12 00:52] VITALS: PULSE 68; RESP 22; O2SAT 99
[2024-02-12] MEDS: ALBUTEROL (0.083%) 2.5MG/3ML NEB HHN STA (00:52)
[2024-02-12] MEDS: METHYLPREDNISOLONE SOD SUCC 125MG/2ML (ACT-O-VIAL) IV NR (01:34)
[2024-02-12 02:56] VITALS: BP 135/51; PULSE 80; RESP 16; TEMP 97.7
[2024-02-15] MEDS ORDERED: METHYLPREDNISOLONE SOD SUCC 40MG/ML (ACT-O-VIAL) IV NR (21:30)
== END 2024-02-12 03:16 | disposition short-term general hospital (02) ==
LOC: ER 22:05
DX: J45.901 Unspecified asthma with (acute) exacerbation (principal); I11.0 Hypertensive heart disease with heart failure; I50.9 Heart failure, unspecified; E11.9 Type 2 diabetes mellitus without complications
CPT/HCPCS: 80048; 80320; 83880; 83690; 85025; 84484; 36415; 71045; 93005; 99285; 82962; 94640; 96374; J2919; G0480

== ENCOUNTER 2024-02-15 20:20 | Emergency (ER) | payer OTHER ==
[~2024-02-15] VITALS: Ht 172.7 cm; Wt 115.0 kg
[2024-02-15] MEDS ORDERED: ALBUTEROL (0.083%) 2.5MG/3ML NEB HHN STA (21:16)
[2024-02-15] MEDS ORDERED: IPRATROPIUM BROMIDE (0.02%) 0.5MG/2.5ML NEB HHN STA (21:16)
[2024-02-15] MEDS: FUROSEMIDE 40MG/4ML VIAL IV ONE (21:39)
[2024-02-15 21:52] LABS: BASOPHILS % 0.2 % (0.0-2.0); HEMOGLOBIN. 10.2 g/dL (12.0-16.0); LYMPHOCYTES % 14.6 % (20.0-50.0); MEAN CORPUSCULAR HEMOGLOBIN 27.6 pg (28.0-32.0); MEAN CORPUSCULAR HGB CONC 31.9 g/dL (31.0-37.0); MEAN CORPUSCULAR VOLUME 86.3 fL (81.0-99.0); MEAN PLATELET VOLUME 7.6 fl (7.4-10.4); MONOCYTES % 6.3 % (2.0-8.0); NEUTROPHILS % 78.9 % (40.0-76.0); PLATELET 243 x1000/uL (130-400); RED BLOOD CELL COUNT 3.71 mill/uL (4.2-5.4); RED CELL DISTRIBUTION WIDTH 21.2 % (11.6-14.6); WHITE BLOOD COUNT 6.4 x1000/uL (4.5-11.0)
[2024-02-15 21:56] LABS: CHLORIDE 102 mEq/L (98-107); POTASSIUM 4.2 mEq/L (3.5-5.1); SODIUM 136 mEq/L (136-145)
[2024-02-15 21:57] LABS: CARBON DIOXIDE 28 mEq/L (21-32)
[2024-02-15 21:58] LABS: CALCIUM 9.3 mg/dL (8.7-10.4)
[2024-02-15 22:02] LABS: CREATININE 1.6 mg/dL (0.6-1.0); GLUCOSE 372 mg/dL (70-105); UREA NITROGEN BLOOD 52 mg/dL (9-23)
[2024-02-15 22:05] LABS: TROPONIN I HIGH SENSITIVITY 23 ng/L (3.0-34)
[2024-02-15 22:30] VITALS: TEMP 97.8
[2024-02-15 22:44] LABS: BG BASE EXCESS 3.1 mmol/L (-2.0-2.0); BG CARBOXYHEMOGLOBIN 0.8 % (0.5-1.5); BG DEOXYHEMOGLOBIN 1.2 % (0.0-5.0); BG FRACTION INSPIRED OXYGEN 28; BG HCO3 ACT 28.7 mmol/L (22.0-26.0); BG METHEMOGLOBIN 0.2 % (0.0-1.5); BG OXYGEN SATURATION 98.8 % (92.0-98.5); BG OXYHEMOGLOBIN 97.8 % (94.0-97.0); BG PCO2 47.5 mmHg (35.0-45.0); BG PH 7.399 (7.350-7.450); BG PO2 139.4 mmHg (75.0-100.0); BG SAMPLE SITE RIGHT RADIAL; BG TOTAL HEMOGLOBIN 13.7 g/dL (12.0-18.0); BG VENT MODE NASAL CANNULA
[2024-02-15 23:25] VITALS: PULSE 63; RESP 16; O2SAT 100
[2024-02-15] MEDS: IPRATROPIUM BROMIDE (0.02%) 0.5MG/2.5ML NEB HHN NR (23:25)
[2024-02-15] MEDS: ALBUTEROL (0.083%) 2.5MG/3ML NEB HHN NR (23:26)
[2024-02-15 23:27] LABS: TROPONIN I HIGH SENSITIVITY 23 ng/L (3.0-34)
[2024-02-16 00:37] VITALS: BP 155/60; PULSE 81; RESP 16
== END 2024-02-16 00:35 | disposition short-term general hospital (02) ==
LOC: ER 20:20
DX: J96.91 Respiratory failure, unspecified with hypoxia (principal); J44.9 Chronic obstructive pulmonary disease, unspecified; I13.0 Hypertensive heart and chronic kidney disease with heart failure and stage 1 through stage 4 chronic kidney disease, or unspecified chronic kidney disease; N18.9 Chronic kidney disease, unspecified; E66.01 Morbid (severe) obesity due to excess calories; I50.9 Heart failure, unspecified; Z68.38 Body mass index [BMI] 38.0-38.9, adult; Z88.0 Allergy status to penicillin; Z79.899 Other long term (current) drug therapy; Z88.5 Allergy status to narcotic agent
CPT/HCPCS: 99285; 96374; 71045; 80048; 83880; 85025; 85610; 84484; 36415; 94640; 82805; 82375; 93005; 36600; J1940

== ENCOUNTER 2024-02-23 14:42 | Emergency (ER) | payer MEDICARE, OTHER ==
[~2024-02-23] VITALS: Ht 162.6 cm; Wt 90.0 kg
[2024-02-23 14:45] VITALS: O2SAT 99
[2024-02-23 15:53] LABS: HEMATOCRIT. 30.8 % (36.0-48.0); MEAN CORPUSCULAR HEMOGLOBIN 28.2 pg (28.0-32.0); MEAN CORPUSCULAR HGB CONC 32.4 g/dL (31.0-37.0); MEAN CORPUSCULAR VOLUME 87.2 fL (81.0-99.0); PLATELET 228 x1000/uL (130-400); RED BLOOD CELL COUNT 3.53 mill/uL (4.2-5.4); WHITE BLOOD COUNT 7.4 x1000/uL (4.5-11.0)
[2024-02-23 15:55] LABS: DIFFERENTIAL COMMENT 1
[2024-02-23 16:10] LABS: CHLORIDE 96 mEq/L (98-107); POTASSIUM 5.5 mEq/L (3.5-5.1); SODIUM 134 mEq/L (136-145)
[2024-02-23 16:11] LABS: CALCIUM 8.1 mg/dL (8.7-10.4); CARBON DIOXIDE 26 mEq/L (21-32)
[2024-02-23 16:16] LABS: CREATININE 2.2 mg/dL (0.6-1.0); UREA NITROGEN BLOOD 88 mg/dL (9-23)
[2024-02-23 16:18] LABS: TROPONIN I HIGH SENSITIVITY 22 ng/L (3.0-34)
[2024-02-23 16:38] LABS: GLUCOSE 509 mg/dL (70-105)
[2024-02-23 16:43] LABS: ANISOCYTOSIS 2+; PLATELET ESTIMATE NORMAL
[2024-02-23] MEDS: SODIUM CHLORIDE 0.9% 1,000 ML IV ONE (17:06)
[2024-02-23] MEDS: INSULIN REGULAR (HUMULIN R) 300UNITS/3ML VIAL IV STA (17:12)
[2024-02-23 18:05] VITALS: TEMP 97.6
[2024-02-23] MEDS: LEVOFLOXACIN 500MG PREMIX 100 ML IV ONE (19:52)
[2024-02-23 20:00] VITALS: BP 147/56; PULSE 63; RESP 15
[2024-02-23 20:36] LABS: LACTIC ACID 2.7 mmol/L (0.4-2.0)
== END 2024-02-23 21:58 | disposition short-term general hospital (02) ==
LOC: ER 15:04
DX: E11.65 Type 2 diabetes mellitus with hyperglycemia (principal); I11.0 Hypertensive heart disease with heart failure; I50.9 Heart failure, unspecified; J44.9 Chronic obstructive pulmonary disease, unspecified; Z79.899 Other long term (current) drug therapy; Z20.822 Contact with and (suspected) exposure to COVID-19
CPT/HCPCS: 99285; 96365; 71045; 96361; 96375; 87426; 80048; 82962; 83880; 83605; 85025; 87040; 84484; 36415; 93005; J1956; J7030; J1815

== ENCOUNTER 2024-02-24 18:05 | Emergency (ER) | payer OTHER ==
[~2024-02-24] VITALS: Ht 167.6 cm; Wt 100.0 kg
[2024-02-24 18:10] VITALS: O2SAT 99
[2024-02-24 19:12] LABS: HEMATOCRIT. 28.4 % (36.0-48.0); MEAN CORPUSCULAR HEMOGLOBIN 27.9 pg (28.0-32.0); MEAN CORPUSCULAR HGB CONC 31.8 g/dL (31.0-37.0); MEAN CORPUSCULAR VOLUME 87.8 fL (81.0-99.0); MEAN PLATELET VOLUME 7.9 fl (7.4-10.4); PLATELET 240 x1000/uL (130-400); RED BLOOD CELL COUNT 3.23 mill/uL (4.2-5.4); RED CELL DISTRIBUTION WIDTH 21.2 % (11.6-14.6); WHITE BLOOD COUNT 7.9 x1000/uL (4.5-11.0)
[2024-02-24 19:13] LABS: DIFFERENTIAL COMMENT 1
[2024-02-24 19:20] LABS: POTASSIUM 4.8 mEq/L (3.5-5.1)
[2024-02-24 19:21] LABS: CALCIUM 8.4 mg/dL (8.7-10.4)
[2024-02-24 19:26] LABS: CREATININE 2.1 mg/dL (0.6-1.0)
[2024-02-24] MEDS: INSULIN REGULAR (HUMULIN R) 1000UNITS/10ML VIAL IV STA (19:30)
[2024-02-24 19:54] LABS: ANISOCYTOSIS 2+; PLATELET ESTIMATE NORMAL
[2024-02-24 22:54] VITALS: BP 146/51; PULSE 60; RESP 15; TEMP 98.4
[2024-02-24 23:28] LABS: TROPONIN I HIGH SENSITIVITY 25 ng/L (3.0-34)
== END 2024-02-24 23:39 | disposition short-term general hospital (02) ==
LOC: ER 18:05
DX: E11.65 Type 2 diabetes mellitus with hyperglycemia (principal); E86.0 Dehydration; R79.89 Other specified abnormal findings of blood chemistry; I50.9 Heart failure, unspecified; Z88.0 Allergy status to penicillin; Z88.2 Allergy status to sulfonamides
CPT/HCPCS: 99285; 96374; 70450; 71045; 80048; 82962; 83880; 85025; 84484; 36415; 93005; J1815

== ENCOUNTER 2024-02-26 15:54 | Emergency (ER) | payer OTHER ==
[~2024-02-26] VITALS: Ht 170.2 cm; Wt 118.0 kg
[2024-02-26 15:55] VITALS: O2SAT 100
[2024-02-26 17:07] LABS: HEMATOCRIT. 30.3 % (36.0-48.0); HEMOGLOBIN. 9.7 g/dL (12.0-16.0); MEAN CORPUSCULAR HEMOGLOBIN 27.7 pg (28.0-32.0); MEAN CORPUSCULAR HGB CONC 32.1 g/dL (31.0-37.0); MEAN CORPUSCULAR VOLUME 86.3 fL (81.0-99.0); MEAN PLATELET VOLUME 7.3 fl (7.4-10.4); PLATELET 303 x1000/uL (130-400); RED BLOOD CELL COUNT 3.51 mill/uL (4.2-5.4); RED CELL DISTRIBUTION WIDTH 21.4 % (11.6-14.6)
[2024-02-26 17:11] LABS: DIFFERENTIAL COMMENT 1
[2024-02-26 17:15] LABS: CARBON DIOXIDE 26 mEq/L (21-32); CHLORIDE 101 mEq/L (98-107); POTASSIUM 5.1 mEq/L (3.5-5.1); SODIUM 136 mEq/L (136-145)
[2024-02-26 17:16] LABS: CALCIUM 8.5 mg/dL (8.7-10.4)
[2024-02-26 17:20] LABS: CREATININE 2.3 mg/dL (0.6-1.0)
[2024-02-26 17:21] LABS: GLUCOSE 356 mg/dL (70-105); UREA NITROGEN BLOOD 88 mg/dL (9-23)
[2024-02-26 17:22] LABS: ALANINE AMINOTRANSFERASE 10 IU/L (10-49); ALBUMIN 3.1 g/dL (3.2-4.8); ASPARTATE AMINOTRANSFERASE 8 IU/L (<34)
[2024-02-26 17:23] LABS: BETA HYDROXYBUTYRATE 0.4 mMol/L (0.0-0.3); BILIRUBIN TOTAL 0.2 mg/dL (0.1-1.0); PROTEIN TOTAL 6.2 g/dL (6.0-8.3)
[2024-02-26 17:38] LABS: ANISOCYTOSIS 2+; PLATELET ESTIMATE NORMAL
[2024-02-26] MEDS: INSULIN REGULAR (HUMULIN R) 1000UNITS/10ML VIAL SUBCUT ONE (18:13)
[2024-02-26 20:06] VITALS: TEMP 97.9
[2024-02-26 22:00] VITALS: BP 148/56; PULSE 80; RESP 18
== END 2024-02-26 22:00 | disposition home or self-care (01) ==
LOC: ER 16:05
DX: E11.65 Type 2 diabetes mellitus with hyperglycemia (principal); I50.9 Heart failure, unspecified; Z88.0 Allergy status to penicillin; Z88.5 Allergy status to narcotic agent; Z79.899 Other long term (current) drug therapy; Z79.82 Long term (current) use of aspirin
CPT/HCPCS: 99283; 80053; 82010; 82962; 85025; 36415; 96372; J1815

== ENCOUNTER 2024-03-07 10:41 | Emergency (ER) | payer OTHER ==
[~2024-03-07] VITALS: Ht 167.6 cm; Wt 109.0 kg
[2024-03-07 10:43] VITALS: O2SAT 98
[2024-03-07 11:36] LABS: BASOPHILS % 0.3 % (0.0-2.0); HEMATOCRIT. 24.1 % (36.0-48.0); HEMOGLOBIN. 7.8 g/dL (12.0-16.0); LYMPHOCYTES % 19.8 % (20.0-50.0); MEAN CORPUSCULAR HEMOGLOBIN 28.2 pg (28.0-32.0); MEAN CORPUSCULAR HGB CONC 32.5 g/dL (31.0-37.0); MEAN CORPUSCULAR VOLUME 86.6 fL (81.0-99.0); MONOCYTES % 10.5 % (2.0-8.0); NEUTROPHILS % 67.4 % (40.0-76.0); PLATELET 241 x1000/uL (130-400); RED BLOOD CELL COUNT 2.78 mill/uL (4.2-5.4); RED CELL DISTRIBUTION WIDTH 21.1 % (11.6-14.6); WHITE BLOOD COUNT 5.7 x1000/uL (4.5-11.0)
[2024-03-07 11:43] LABS: CHLORIDE 104 mEq/L (98-107); SODIUM 140 mEq/L (136-145)
[2024-03-07 11:44] LABS: CARBON DIOXIDE 31 mEq/L (21-32)
[2024-03-07 11:45] LABS: CALCIUM 8.7 mg/dL (8.7-10.4)
[2024-03-07 11:47] LABS: INR 1.1; PROTHROMBIN TIME 11.9 sec (9.6-11.0)
[2024-03-07 11:49] LABS: CREATININE 1.9 mg/dL (0.6-1.0); GLUCOSE 121 mg/dL (70-105); UREA NITROGEN BLOOD 75 mg/dL (9-23)
[2024-03-07 11:50] LABS: TROPONIN I HIGH SENSITIVITY 32 ng/L (3.0-34)
[2024-03-07 14:27] VITALS: BP 135/97; PULSE 61; RESP 17; TEMP 98
== END 2024-03-07 14:49 | disposition short-term general hospital (02) ==
LOC: ER 10:41 → 5WST 12:47 → UNDOADMIN 12:47 → EDBEDREQ 12:58 → EDBEDREQTM 12:58 → EDBEDREQSVC 12:58 → UNDODISIN 14:49
DX: R53.1 Weakness (principal); E11.9 Type 2 diabetes mellitus without complications; J44.1 Chronic obstructive pulmonary disease with (acute) exacerbation; N28.9 Disorder of kidney and ureter, unspecified; Z88.0 Allergy status to penicillin; Z88.5 Allergy status to narcotic agent; Z79.82 Long term (current) use of aspirin
CPT/HCPCS: 36415; 71045; 80048; 83605; 83880; 84484; 85025; 93005; 99285

== ENCOUNTER 2024-03-10 09:03 | Emergency (ER) | payer OTHER ==
[~2024-03-10] VITALS: Ht 177.8 cm; Wt 127.0 kg
[2024-03-10 09:05] VITALS: O2SAT 98
[2024-03-10 10:30] LABS: BASOPHILS % 0.3 % (0.0-2.0); HEMATOCRIT. 27.2 % (36.0-48.0); LYMPHOCYTES % 27.2 % (20.0-50.0); MEAN CORPUSCULAR HEMOGLOBIN 28.5 pg (28.0-32.0); MEAN CORPUSCULAR VOLUME 86.4 fL (81.0-99.0); MEAN PLATELET VOLUME 7.2 fl (7.4-10.4); MONOCYTES % 10.3 % (2.0-8.0); NEUTROPHILS % 60.2 % (40.0-76.0); PLATELET 221 x1000/uL (130-400); RED BLOOD CELL COUNT 3.15 mill/uL (4.2-5.4); RED CELL DISTRIBUTION WIDTH 21.4 % (11.6-14.6); WHITE BLOOD COUNT 5.3 x1000/uL (4.5-11.0)
[2024-03-10 10:39] LABS: CHLORIDE 105 mEq/L (98-107); POTASSIUM 4.3 mEq/L (3.5-5.1); SODIUM 140 mEq/L (136-145)
[2024-03-10 10:40] LABS: CALCIUM 8.8 mg/dL (8.7-10.4); CARBON DIOXIDE 30 mEq/L (21-32)
[2024-03-10 10:45] LABS: GLUCOSE 200 mg/dL (70-105); TROPONIN I HIGH SENSITIVITY 28 ng/L (3.0-34); UREA NITROGEN BLOOD 63 mg/dL (9-23)
[2024-03-10 10:46] LABS: ALANINE AMINOTRANSFERASE < 7 IU/L (10-49); ASPARTATE AMINOTRANSFERASE 11 IU/L (<34)
[2024-03-10 10:47] LABS: ALBUMIN 3.3 g/dL (3.2-4.8); BILIRUBIN DIRECT 0.2 mg/dL (<=3.0); BILIRUBIN TOTAL 0.3 mg/dL (0.1-1.0); PROTEIN TOTAL 6.1 g/dL (6.0-8.3)
[2024-03-10 11:06] LABS: INR 1.1; PARTIAL THROMBOPLASTIN TIME 27.9 sec (23.4-31.0); PROTHROMBIN TIME 11.8 sec (9.6-11.0)
[2024-03-10] MEDS: FUROSEMIDE 40MG/4ML VIAL IVP ONE (11:41)
[2024-03-10 12:28] VITALS: BP 144/55; PULSE 76; RESP 16; TEMP 97.7
[2024-03-10 12:29] LABS: TROPONIN I HIGH SENSITIVITY 29 ng/L (3.0-34)
== END 2024-03-10 12:58 | disposition short-term general hospital (02) ==
LOC: ER 09:10 → EDBEDREQ 10:17 → CANBEDREQ 12:44 → ER 12:58
DX: R07.89 Other chest pain (principal); E11.9 Type 2 diabetes mellitus without complications; I50.9 Heart failure, unspecified; J44.1 Chronic obstructive pulmonary disease with (acute) exacerbation; Z88.0 Allergy status to penicillin; Z88.5 Allergy status to narcotic agent; Z79.899 Other long term (current) drug therapy
CPT/HCPCS: 99285; 96374; 71045; 80076; 80048; 83880; 85025; 85610; 85730; 84484; 36415; 93005; J1940

== ENCOUNTER 2024-07-23 13:07 | Emergency (ER) | payer OTHER ==
[~2024-07-23] VITALS: Ht 167.6 cm; Wt 100.0 kg
[~2024-07-23 13:07] MED LIST changes: +GABA-1180 PO; -GABA-532 PO; -GLIP10TA10 MT; +GLIP10TA17 MT; +HYDR100T11 MT; -HYDR100T26 MT
[2024-07-23 13:38] VITALS: O2SAT 97
[2024-07-23] MEDS: HYDRALAZINE HCL 25MG TABLET PO ONE (14:34)
[2024-07-23] MEDS: ACETAMINOPHEN 500MG TABLET PO ONE (14:34)
[2024-07-23 19:28] VITALS: BP 168/70; PULSE 64; RESP 18; TEMP 36.72516; O2SAT 99
== END 2024-07-23 19:29 | disposition home or self-care (01) ==
LOC: ER 13:33
DX: L89.319 Pressure ulcer of right buttock, unspecified stage (principal); I11.0 Hypertensive heart disease with heart failure; I50.9 Heart failure, unspecified; Z88.0 Allergy status to penicillin; Z88.5 Allergy status to narcotic agent; Z79.899 Other long term (current) drug therapy; Z79.82 Long term (current) use of aspirin
CPT/HCPCS: 72192; 99284

== ENCOUNTER 2024-08-15 12:19 | Emergency (ER) | payer MEDICARE, OTHER ==
[~2024-08-15] VITALS: Ht 167.6 cm; Wt 95.0 kg
[2024-08-15 12:23] VITALS: O2SAT 99
[2024-08-15] MEDS ORDERED: KETOROLAC 30MG/ML VIAL IV ONE (12:45)
[2024-08-15 14:05] LABS: BASOPHILS % 0.6 % (0.0-2.0); CHLORIDE 113 mEq/L (98-107); EOSINOPHILS % 7.6 % (0.0-5.0); HEMATOCRIT. 27.5 % (36.0-48.0); HEMOGLOBIN. 8.9 g/dL (12.0-16.0); LYMPHOCYTES % 31.2 % (20.0-50.0); MEAN CORPUSCULAR HEMOGLOBIN 29.1 pg (28.0-32.0); MEAN CORPUSCULAR HGB CONC 32.5 g/dL (31.0-37.0); MEAN CORPUSCULAR VOLUME 89.5 fL (81.0-99.0); MEAN PLATELET VOLUME 6.6 fl (7.4-10.4); MONOCYTES % 10.6 % (2.0-8.0); PLATELET 266 x1000/uL (130-400); RED BLOOD CELL COUNT 3.07 mill/uL (4.2-5.4); RED CELL DISTRIBUTION WIDTH 17.3 % (11.6-14.6); WHITE BLOOD COUNT 5.1 x1000/uL (4.5-11.0)
[2024-08-15 14:06] LABS: CARBON DIOXIDE 25 mEq/L (21-32); POTASSIUM 4.3 mEq/L (3.5-5.1); SODIUM 145 mEq/L (136-145)
[2024-08-15 14:07] LABS: CALCIUM 8.7 mg/dL (8.7-10.4)
[2024-08-15 14:11] LABS: CREATININE 1.7 mg/dL (0.6-1.0); GLUCOSE 97 mg/dL (70-105)
[2024-08-15 14:12] LABS: UREA NITROGEN BLOOD 35 mg/dL (9-23)
[2024-08-15 14:13] LABS: ALANINE AMINOTRANSFERASE < 7 IU/L (10-49); ALBUMIN 3.4 g/dL (3.2-4.8); ASPARTATE AMINOTRANSFERASE 11 IU/L (<34)
[2024-08-15 14:14] LABS: BILIRUBIN DIRECT 0.1 mg/dL (<=3.0); BILIRUBIN TOTAL 0.3 mg/dL (0.1-1.0); PROTEIN TOTAL 6.4 g/dL (6.0-8.3)
[2024-08-15 14:20] LABS: PROTHROMBIN TIME 11.4 sec (9.6-11.0)
[2024-08-15] MEDS: SODIUM CHLORIDE 0.9% 1,000 ML IV ONE (16:06)
[2024-08-15] MEDS: KETOROLAC 15MG/ML VIAL IV NR (16:06)
[2024-08-15 16:39] LABS: CLARITY URINE CLOUDY (CLEAR); COLOR URINE YELLOW (YELLOW); GLUCOSE URINE NEGATIVE (NEGATIVE); KETONES URINE NEGATIVE (NEGATIVE); LEUKOCYTE ESTERASE URINE 3+ (NEGATIVE); NITRITE URINE NEGATIVE (NEGATIVE); OCCULT BLOOD URINE TRACE (NEGATIVE); PROTEIN URINE TRACE (NEGATIVE); SPECIFIC GRAVITY URINE 1.011 (1.005-1.030)
[2024-08-15 17:22] LABS: WBC URINE TNTC /hpf (0-2)
[2024-08-15 17:23] LABS: BACTERIA URINE 2+; SQUAMOUS EPITHELIAL CELL URINE 1+ /lpf (RARE/1+)
[2024-08-15] MEDS: CEFTRIAXONE 2GM/50ML 50 ML IV ONE (19:45)
[2024-08-15 21:53] VITALS: BP 157/77; PULSE 68; RESP 12; TEMP 36.89184; O2SAT 99
== END 2024-08-15 22:19 | disposition short-term general hospital (02) ==
LOC: ER 12:19 → EDBEDREQ 14:42 → EDBEDREQSVC 16:56 → EDBEDREQ 18:41 → ER 22:19 → CANBEDREQ 08-16 19:41
DX: N39.0 Urinary tract infection, site not specified (principal); N17.9 Acute kidney failure, unspecified; E66.9 Obesity, unspecified; I11.0 Hypertensive heart disease with heart failure; I50.9 Heart failure, unspecified; E11.9 Type 2 diabetes mellitus without complications; E78.00 Pure hypercholesterolemia, unspecified; Z88.5 Allergy status to narcotic agent; Z88.0 Allergy status to penicillin; Z79.899 Other long term (current) drug therapy; Z79.82 Long term (current) use of aspirin
CPT/HCPCS: 99285; 72131; 96365; 96361; 96375; 80076; 80048; 81003; 83690; 85025; 85610; 87086; 36415; 74176; J0696; J1885; J7030

== ENCOUNTER 2024-08-29 11:53 | Emergency (ER) | payer OTHER ==
[~2024-08-29] VITALS: Ht 167.6 cm; Wt 90.0 kg
[2024-08-29 11:55] VITALS: O2SAT 98
[2024-08-29] MEDS ORDERED: VANCOMYCIN 1000MG/250ML 250 ML IV ONE (13:15)
[2024-08-29 13:27] LABS: BASOPHILS % 0.8 % (0.0-2.0); EOSINOPHILS % 5.4 % (0.0-5.0); HEMATOCRIT. 29.3 % (36.0-48.0); HEMOGLOBIN. 9.5 g/dL (12.0-16.0); LYMPHOCYTES % 21.8 % (20.0-50.0); MEAN CORPUSCULAR HEMOGLOBIN 29.4 pg (28.0-32.0); MEAN CORPUSCULAR HGB CONC 32.5 g/dL (31.0-37.0); MEAN CORPUSCULAR VOLUME 90.6 fL (81.0-99.0); MEAN PLATELET VOLUME 6.4 fl (7.4-10.4); MONOCYTES % 10.2 % (2.0-8.0); NEUTROPHILS % 61.8 % (40.0-76.0); PLATELET 302 x1000/uL (130-400); RED BLOOD CELL COUNT 3.23 mill/uL (4.2-5.4); RED CELL DISTRIBUTION WIDTH 17.6 % (11.6-14.6); WHITE BLOOD COUNT 6.3 x1000/uL (4.5-11.0)
[2024-08-29 13:36] LABS: POTASSIUM 4.7 mEq/L (3.5-5.1)
[2024-08-29 13:38] LABS: CALCIUM 9.1 mg/dL (8.7-10.4)
[2024-08-29 13:43] LABS: CREATININE 1.6 mg/dL (0.6-1.0)
[2024-08-29 14:15] LABS: ERYTHROCYTE SEDIMENTATION RATE 44 mm/hr (0-42)
[2024-08-29] MEDS: VANCOMYCIN 1G PREMIX 200 ML IV NR (16:03)
[2024-08-29 18:19] VITALS: BP 167/59; PULSE 68; RESP 18; TEMP 37.11408; O2SAT 99
== END 2024-08-29 18:40 | disposition short-term general hospital (02) ==
LOC: ER 12:09
DX: L89.309 Pressure ulcer of unspecified buttock, unspecified stage (principal); I11.0 Hypertensive heart disease with heart failure; I50.9 Heart failure, unspecified; E11.9 Type 2 diabetes mellitus without complications; E78.00 Pure hypercholesterolemia, unspecified; J44.9 Chronic obstructive pulmonary disease, unspecified; Z79.899 Other long term (current) drug therapy; Z79.84 Long term (current) use of oral hypoglycemic drugs; Z88.0 Allergy status to penicillin; Z88.5 Allergy status to narcotic agent; Z79.82 Long term (current) use of aspirin
CPT/HCPCS: 99285; 74176; 96365; 96366; 80048; 85025; 85651; 36415; J3370

== ENCOUNTER 2024-12-26 18:41 | Emergency (ER) | payer OTHER, MEDICAID ==
[~2024-12-26] VITALS: Ht 167.6 cm; Wt 100.0 kg
[2024-12-26 18:44] VITALS: O2SAT 96
[2024-12-26] MEDS ORDERED: NITROGLYCERIN OINT 1GM/INCH UDPKT TD ONE (19:15)
[2024-12-26] MEDS: FUROSEMIDE 40MG/4ML VIAL IVP ONE (19:16)
[2024-12-26 19:26] LABS: BASOPHILS % 0.5 % (0.0-2.0); CHLORIDE 108 mEq/L (98-107); EOSINOPHILS % 3.6 % (0.0-5.0); HEMATOCRIT. 31.7 % (36.0-48.0); HEMOGLOBIN. 10.2 g/dL (12.0-16.0); LYMPHOCYTES % 27.8 % (20.0-50.0); MEAN CORPUSCULAR HEMOGLOBIN 27.7 pg (28.0-32.0); MEAN CORPUSCULAR VOLUME 86.5 fL (81.0-99.0); MEAN PLATELET VOLUME 7.2 fl (7.4-10.4); MONOCYTES % 8.8 % (2.0-8.0); NEUTROPHILS % 59.3 % (40.0-76.0); PLATELET 285 x1000/uL (130-400); POTASSIUM 4.8 mEq/L (3.5-5.1); RED BLOOD CELL COUNT 3.67 mill/uL (4.2-5.4); RED CELL DISTRIBUTION WIDTH 19.4 % (11.6-14.6); SODIUM 141 mEq/L (136-145); WHITE BLOOD COUNT 6.6 x1000/uL (4.5-11.0)
[2024-12-26 19:27] LABS: CALCIUM 8.8 mg/dL (8.7-10.4); CARBON DIOXIDE 25 mEq/L (21-32)
[2024-12-26 19:32] LABS: CREATININE 1.6 mg/dL (0.6-1.0); GLUCOSE 173 mg/dL (70-105); UREA NITROGEN BLOOD 31 mg/dL (9-23)
[2024-12-26 19:33] LABS: TROPONIN I HIGH SENSITIVITY 19 ng/L (3.0-34)
[2024-12-26 19:34] LABS: ALANINE AMINOTRANSFERASE < 7 IU/L (10-49); ALBUMIN 3.6 g/dL (3.2-4.8); ASPARTATE AMINOTRANSFERASE 12 IU/L (<34); BILIRUBIN DIRECT 0.1 mg/dL (<=3.0); BILIRUBIN TOTAL 0.3 mg/dL (0.1-1.0)
[2024-12-26 19:35] LABS: PROTEIN TOTAL 7.3 g/dL (6.0-8.3)
[2024-12-26 21:34] LABS: TROPONIN I HIGH SENSITIVITY 20 ng/L (3.0-34)
[2024-12-26] MEDS: NITROGLYCERIN OINT 1GM/INCH UDPKT TD NR (21:51)
[2024-12-27 00:38] VITALS: BP 162/63; PULSE 53; RESP 12; TEMP 36.7; O2SAT 97
== END 2024-12-27 00:58 | disposition short-term general hospital (02) ==
LOC: ER 18:41
DX: R60.9 Edema, unspecified (principal); E78.00 Pure hypercholesterolemia, unspecified; E11.9 Type 2 diabetes mellitus without complications; I11.0 Hypertensive heart disease with heart failure; I50.9 Heart failure, unspecified; N28.9 Disorder of kidney and ureter, unspecified; Z88.5 Allergy status to narcotic agent; Z88.0 Allergy status to penicillin; Z79.899 Other long term (current) drug therapy; Z79.82 Long term (current) use of aspirin
CPT/HCPCS: 99285; 96374; 71045; 80076; 80048; 83880; 85025; 85610; 84484; 36415; 93005; J1940

== ENCOUNTER 2025-03-22 10:42 | Emergency (ER) | payer OTHER, MEDICAID ==
[~2025-03-22] VITALS: Ht 165.1 cm; Wt 130.0 kg
[2025-03-22 10:45] VITALS: O2SAT 97
[2025-03-22] MEDS: LIDOCAINE 5% PATCH TOP SCH (11:45)
[2025-03-22] MEDS ORDERED: LIDO700A30 TP (14:01)
[2025-03-22] MEDS: HYDROCODONE/ACETAMINOPHEN 5/325MG TABLET PO ONE (15:58)
[2025-03-22] MEDS: DIPHENHYDRAMINE 25MG CAPSULE PO ONE (15:58)
[2025-03-22 18:46] VITALS: BP 165/48; PULSE 66; RESP 12; TEMP 36.8; O2SAT 99
== END 2025-03-22 19:04 | disposition home or self-care (01) ==
LOC: ER 11:44
DX: G89.29 Other chronic pain (principal); M54.50 Low back pain, unspecified; E11.22 Type 2 diabetes mellitus with diabetic chronic kidney disease; I13.0 Hypertensive heart and chronic kidney disease with heart failure and stage 1 through stage 4 chronic kidney disease, or unspecified chronic kidney disease; I50.9 Heart failure, unspecified; J44.9 Chronic obstructive pulmonary disease, unspecified; N18.9 Chronic kidney disease, unspecified; Z79.82 Long term (current) use of aspirin; Z79.84 Long term (current) use of oral hypoglycemic drugs; Z79.899 Other long term (current) drug therapy; Z88.0 Allergy status to penicillin; Z88.5 Allergy status to narcotic agent
CPT/HCPCS: 99285; Q0163; A4606

== ENCOUNTER 2025-03-25 10:09 | Emergency (ER) | payer OTHER, MEDICAID ==
[~2025-03-25] VITALS: Ht 167.6 cm; Wt 150.0 kg
[~2025-03-25 10:09] MED LIST changes: +LIDO700A30 TP
[2025-03-25 10:11] VITALS: O2SAT 97
[2025-03-25] MEDS: MORPHINE SULFATE 4 MG/ML INJ (FOR IV/IM USE) IV ONE (10:30)
[2025-03-25 11:58] LABS: BASOPHILS % 0.5 % (0.0-2.0); EOSINOPHILS % 6.2 % (0.0-5.0); HEMATOCRIT. 28.0 % (36.0-48.0); HEMOGLOBIN. 9.2 g/dL (12.0-16.0); LYMPHOCYTES % 28.0 % (20.0-50.0); MEAN PLATELET VOLUME 6.9 fl (7.4-10.4); MONOCYTES % 8.4 % (2.0-8.0); NEUTROPHILS % 56.9 % (40.0-76.0); PLATELET 292 x1000/uL (130-400); RED BLOOD CELL COUNT 3.09 mill/uL (4.2-5.4); RED CELL DISTRIBUTION WIDTH 15.7 % (11.6-14.6)
[2025-03-25 12:13] LABS: CREATININE 2.2 mg/dL (0.6-1.0); UREA NITROGEN BLOOD 73.0 mg/dL (9-23)
[2025-03-25] MEDS ORDERED: HYDROCODONE/ACETAMINOPHEN 5/325MG TABLET PO PRN (13:30)
[2025-03-25] MEDS ORDERED: IPRATROPIUM/ALBUTEROL 0.5-3(2.5)MG/3ML NEB NEB PRN (13:30)
[2025-03-25] MEDS ORDERED: ONDANSETRON HCL 4MG/2ML INJ IV PRN (13:30)
[2025-03-25] MEDS ORDERED: CLONIDINE 0.1MG TABLET PO PRN (13:30)
[2025-03-25] MEDS ORDERED: MORPHINE SULFATE 2 MG/ML INJ (NOT FOR IM USE) IV PRN (13:30)
[2025-03-25] MEDS ORDERED: ZOLPIDEM TARTRATE 5MG TABLET PO PRN (13:30)
[2025-03-25] MEDS ORDERED: DEXTROSE 50% WATER 50ML SYRINGE IV PRN (13:30)
[2025-03-25] MEDS ORDERED: ACETAMINOPHEN 325MG TABLET PO PRN (13:30)
[2025-03-25] MEDS ORDERED: MAGNESIUM/ALUMINUM HYDROXIDE/SIMETHICONE 30ML UDC PO PRN (13:30)
[2025-03-25] MEDS ORDERED: SODIUM CHLORIDE 0.9% 1,000 ML IV SCH (13:45)
[2025-03-25] MEDS ORDERED: ENOXAPARIN 40MG/0.4ML SYR SUBCUT SCH (14:00)
[2025-03-25 15:16] VITALS: BP 157/46; PULSE 58; RESP 19; TEMP 36.9; O2SAT 99
[2025-03-25] MEDS ORDERED: GABAPENTIN 300MG CAPSULE PO SCH (17:00)
[2025-03-25] MEDS ORDERED: BLOOD SUGAR DIAGNOSTIC STRIP TEST SCH (17:00)
[2025-03-25] MEDS ORDERED: HYDRALAZINE HCL 100MG TABLET PO SCH (17:00)
[2025-03-25] MEDS ORDERED: INSULIN LISPRO 100 UNITS/ML SUBCUT SCH (18:20)
[2025-03-26] MEDS ORDERED: PANTOPRAZOLE SODIUM 40 MG/VIAL IV SCH (09:00)
[2025-03-26] MEDS ORDERED: ASPIRIN 81MG EC TABLET PO SCH (09:00)
[2025-03-26] MEDS ORDERED: LIDOCAINE 5% PATCH TOP SCH (09:00)
== END 2025-03-25 15:42 | disposition short-term general hospital (02) ==
LOC: ER 10:09 → CANBEDREQ 12:27 → ER 15:42
DX: M25.569 Pain in unspecified knee (principal); E11.9 Type 2 diabetes mellitus without complications; I11.0 Hypertensive heart disease with heart failure; I50.9 Heart failure, unspecified; J44.9 Chronic obstructive pulmonary disease, unspecified; Z88.5 Allergy status to narcotic agent; Z79.899 Other long term (current) drug therapy; Z88.0 Allergy status to penicillin; Z79.82 Long term (current) use of aspirin
CPT/HCPCS: 99285; 96374; 80048; 85025; 36415; J2270

== ENCOUNTER 2025-03-31 10:51 | Emergency (ER) | payer OTHER, MEDICAID ==
[~2025-03-31] VITALS: Ht 165.1 cm; Wt 100.0 kg
[2025-03-31 10:55] VITALS: O2SAT 99
[2025-03-31] MEDS ORDERED: BO1 TP (11:21)
[2025-03-31] MEDS: ACETAMINOPHEN 325MG TABLET PO ONE (12:01)
[2025-03-31 13:48] VITALS: BP 153/54; PULSE 77; RESP 25; TEMP 36.8; O2SAT 99
== END 2025-03-31 13:49 | disposition home or self-care (01) ==
LOC: ER 10:51
DX: T21.01XA Burn of unspecified degree of chest wall, initial encounter (principal); L89.321 Pressure ulcer of left buttock, stage 1; L89.311 Pressure ulcer of right buttock, stage 1; E11.9 Type 2 diabetes mellitus without complications; I11.0 Hypertensive heart disease with heart failure; I50.9 Heart failure, unspecified; J44.9 Chronic obstructive pulmonary disease, unspecified; Z79.82 Long term (current) use of aspirin; Z79.899 Other long term (current) drug therapy; Z79.84 Long term (current) use of oral hypoglycemic drugs; Z88.0 Allergy status to penicillin; Z88.5 Allergy status to narcotic agent; X08.8XXA Exposure to other specified smoke, fire and flames, initial encounter; Y93.89 Activity, other specified; Y92.89 Other specified places as the place of occurrence of the external cause; Y99.8 Other external cause status
CPT/HCPCS: 99283; A4606

== ENCOUNTER 2025-04-05 15:01 | Emergency (ER) | payer OTHER, MEDICAID ==
[~2025-04-05] VITALS: Ht 172.7 cm; Wt 120.0 kg
[~2025-04-05 15:01] MED LIST changes: +BO1 TP
[2025-04-05 15:11] VITALS: O2SAT 97
[2025-04-05 15:28] VITALS: TEMP 36.9
[2025-04-05 16:26] LABS: BASOPHILS % 0.4 % (0.0-2.0); EOSINOPHILS % 6.6 % (0.0-5.0); HEMATOCRIT. 29.0 % (36.0-48.0); HEMOGLOBIN. 9.3 g/dL (12.0-16.0); LYMPHOCYTES % 20.3 % (20.0-50.0); MEAN PLATELET VOLUME 6.5 fl (7.4-10.4); MONOCYTES % 10.7 % (2.0-8.0); NEUTROPHILS % 62.0 % (40.0-76.0); PLATELET 330 x1000/uL (130-400); RED BLOOD CELL COUNT 3.15 mill/uL (4.2-5.4); RED CELL DISTRIBUTION WIDTH 16.1 % (11.6-14.6)
[2025-04-05 16:37] LABS: CREATININE 2.8 mg/dL (0.6-1.0); UREA NITROGEN BLOOD 75.0 mg/dL (9-23)
[2025-04-05] MEDS ORDERED: SODIUM CHLORIDE 0.9% 1,000 ML IV NR (16:51)
[2025-04-05] MEDS: SODIUM CHLORIDE 0.9% 1,000 ML IV ONE (17:33)
[2025-04-05] MEDS: FLUCONAZOLE 100MG TABLET PO SCH (17:54)
[2025-04-05] MEDS ORDERED: CLINDAMYCIN 600 MG in DEXTROSE 5% WATER 50 ML IV ONE (18:45)
[2025-04-05 18:59] VITALS: TEMP 98.5
[2025-04-05] MEDS: CLINDAMYCIN 600MG PREMIX 50 ML IV NR (18:59)
[2025-04-05] MEDS: ACETAMINOPHEN 500MG TABLET PO ONE (18:59)
[2025-04-05 19:37] VITALS: BP 142/60; PULSE 60; RESP 18; O2SAT 96
== END 2025-04-05 20:11 | disposition short-term general hospital (02) ==
LOC: ER 15:16
DX: L97.919 Non-pressure chronic ulcer of unspecified part of right lower leg with unspecified severity (principal); I11.0 Hypertensive heart disease with heart failure; I50.9 Heart failure, unspecified; E11.9 Type 2 diabetes mellitus without complications; B37.31 Acute candidiasis of vulva and vagina; E86.0 Dehydration; E87.5 Hyperkalemia; E66.01 Morbid (severe) obesity due to excess calories; E11.22 Type 2 diabetes mellitus with diabetic chronic kidney disease; N18.9 Chronic kidney disease, unspecified; Z88.5 Allergy status to narcotic agent; Z88.0 Allergy status to penicillin; Z79.899 Other long term (current) drug therapy; Z79.82 Long term (current) use of aspirin
CPT/HCPCS: 99285; 96365; 96361; 80048; 85025; 36415; J3490; J7060

== ENCOUNTER 2025-04-22 16:52 | Emergency (ER) | payer OTHER, MEDICAID ==
[~2025-04-22] VITALS: Ht 172.7 cm; Wt 118.0 kg
[2025-04-22 16:55] VITALS: O2SAT 96
[2025-04-22] MEDS: SODIUM CHLORIDE 0.9% 1,000 ML IV ONE (19:11)
[2025-04-22 19:17] LABS: BASOPHILS % 0.6 % (0.0-2.0); EOSINOPHILS % 6.0 % (0.0-5.0); HEMATOCRIT. 28.2 % (36.0-48.0); HEMOGLOBIN. 9.3 g/dL (12.0-16.0); LYMPHOCYTES % 24.5 % (20.0-50.0); MEAN PLATELET VOLUME 6.6 fl (7.4-10.4); MONOCYTES % 8.5 % (2.0-8.0); NEUTROPHILS % 60.4 % (40.0-76.0); PLATELET 364 x1000/uL (130-400); RED BLOOD CELL COUNT 3.13 mill/uL (4.2-5.4); RED CELL DISTRIBUTION WIDTH 15.6 % (11.6-14.6)
[2025-04-22 19:28] LABS: UREA NITROGEN BLOOD 26.0 mg/dL (9-23)
[2025-04-22 19:40] LABS: CREATININE 1.6 mg/dL (0.6-1.0)
[2025-04-22 22:55] VITALS: BP 179/70; PULSE 68; RESP 18; TEMP 36.8; O2SAT 100
== END 2025-04-22 23:55 | disposition short-term general hospital (02) ==
LOC: ER 16:52 → CMPBEDREQ 04-23 07:40
DX: R53.1 Weakness (principal); L97.429 Non-pressure chronic ulcer of left heel and midfoot with unspecified severity; L97.419 Non-pressure chronic ulcer of right heel and midfoot with unspecified severity; E11.9 Type 2 diabetes mellitus without complications; I11.0 Hypertensive heart disease with heart failure; I50.9 Heart failure, unspecified; J44.9 Chronic obstructive pulmonary disease, unspecified; Z79.82 Long term (current) use of aspirin; Z79.84 Long term (current) use of oral hypoglycemic drugs; Z79.899 Other long term (current) drug therapy; Z88.0 Allergy status to penicillin; Z88.5 Allergy status to narcotic agent
CPT/HCPCS: 99285; 96360; 71045; 80048; 85025; 36415; J7030

== ENCOUNTER 2025-05-04 21:39 | Emergency (ER) | payer OTHER, MEDICAID ==
[~2025-05-04] VITALS: Ht 167.6 cm; Wt 127.0 kg
[2025-05-04 21:47] VITALS: O2SAT 99
[2025-05-04 23:18] LABS: BASOPHILS % 0.2 % (0.0-2.0); EOSINOPHILS % 2.3 % (0.0-5.0); HEMATOCRIT. 30.8 % (36.0-48.0); HEMOGLOBIN. 9.9 g/dL (12.0-16.0); LYMPHOCYTES % 16.0 % (20.0-50.0); MEAN PLATELET VOLUME 6.5 fl (7.4-10.4); MONOCYTES % 8.8 % (2.0-8.0); NEUTROPHILS % 72.7 % (40.0-76.0); PLATELET 394 x1000/uL (130-400); RED BLOOD CELL COUNT 3.46 mill/uL (4.2-5.4); RED CELL DISTRIBUTION WIDTH 15.8 % (11.6-14.6)
[2025-05-04 23:29] LABS: INR 1.2
[2025-05-04 23:32] LABS: ETHANOL BLOOD < 10 mg/dL (<10); UREA NITROGEN BLOOD 34 mg/dL (9-23)
[2025-05-04 23:33] LABS: ASPARTATE AMINOTRANSFERASE 10 IU/L (<34)
[2025-05-04 23:34] LABS: BILIRUBIN DIRECT 0.2 mg/dL (<=3.0); BILIRUBIN TOTAL 0.5 mg/dL (0.1-1.0); PROTEIN TOTAL 6.4 g/dL (6.0-8.3)
[2025-05-04] MEDS ORDERED: VANCOMYCIN 1000MG/250ML 250 ML IV SCH (23:45)
[2025-05-04] MEDS: ACETAMINOPHEN 325MG TABLET PO NR (23:59)
[2025-05-05 00:07] LABS: CREATININE 2.5 mg/dL (0.6-1.0)
[2025-05-05] MEDS: VANCOMYCIN 2GM PMX (XELLIA) 400 ML IV NR (00:09)
[2025-05-05] MEDS: ACETAMINOPHEN 325MG TABLET PO ONE (00:10)
[2025-05-05] MEDS: SODIUM CHLORIDE 0.9% 500 ML IV ONE (01:04)
[2025-05-05 01:24] VITALS: TEMP 36.7
[2025-05-05 02:25] VITALS: BP 133/42; PULSE 78; RESP 14; O2SAT 98
== END 2025-05-05 03:04 | disposition short-term general hospital (02) ==
LOC: ER 21:39 → CMPBEDREQ 05-05 09:11
DX: L89.102 Pressure ulcer of unspecified part of back, stage 2 (principal); L89.322 Pressure ulcer of left buttock, stage 2; L89.312 Pressure ulcer of right buttock, stage 2; E11.22 Type 2 diabetes mellitus with diabetic chronic kidney disease; E11.51 Type 2 diabetes mellitus with diabetic peripheral angiopathy without gangrene; E78.00 Pure hypercholesterolemia, unspecified; I12.9 Hypertensive chronic kidney disease with stage 1 through stage 4 chronic kidney disease, or unspecified chronic kidney disease; N18.9 Chronic kidney disease, unspecified; Z79.82 Long term (current) use of aspirin; Z79.84 Long term (current) use of oral hypoglycemic drugs; Z79.899 Other long term (current) drug therapy; Z88.0 Allergy status to penicillin; Z88.5 Allergy status to narcotic agent
CPT/HCPCS: 80076; 80048; 80320; 83605; 83690; 85025; 85610; 85730; 87040; 36415; 84145; 99285; J3373; G0480

== ENCOUNTER 2025-07-01 23:17 | Emergency (ER) | payer OTHER, MEDICAID ==
[~2025-07-01] VITALS: Ht 170.2 cm; Wt 85.0 kg
[2025-07-01 23:22] VITALS: O2SAT 100
[2025-07-02] MEDS: HYDROCODONE/ACETAMINOPHEN 5/325MG TABLET PO ONE (00:46)
[2025-07-02] MEDS: MORPHINE SULFATE 4 MG/ML INJ (FOR IV/IM USE) IV NR (01:26)
[2025-07-02 02:11] LABS: UREA NITROGEN BLOOD 24.0 mg/dL (9-23)
[2025-07-02 02:14] LABS: CREATININE 1.5 mg/dL (0.6-1.0)
[2025-07-02 02:15] LABS: BASOPHILS % 0.6 % (0.0-2.0); EOSINOPHILS % 4.5 % (0.0-5.0); HEMATOCRIT. 27.6 % (36.0-48.0); HEMOGLOBIN. 8.9 g/dL (12.0-16.0); LYMPHOCYTES % 20.8 % (20.0-50.0); MEAN PLATELET VOLUME 7.3 fl (7.4-10.4); MONOCYTES % 7.3 % (2.0-8.0); NEUTROPHILS % 66.8 % (40.0-76.0); PLATELET 313 x1000/uL (130-400); RED BLOOD CELL COUNT 3.06 mill/uL (4.2-5.4); RED CELL DISTRIBUTION WIDTH 16.2 % (11.6-14.6)
[2025-07-02] MEDS: MORPHINE SULFATE 2 MG/ML INJ (NOT FOR IM USE) IV NR (03:33)
[2025-07-02] MEDS ORDERED: ACET-2708 MT (04:57)
[2025-07-02 05:55] VITALS: BP 132/64; PULSE 74; RESP 20; TEMP 36.9; O2SAT 100
== END 2025-07-02 05:59 | disposition home or self-care (01) ==
LOC: ER 23:17 → CMPBEDREQ 07-02 08:02
DX: M25.551 Pain in right hip (principal); M25.552 Pain in left hip; E11.22 Type 2 diabetes mellitus with diabetic chronic kidney disease; E78.00 Pure hypercholesterolemia, unspecified; I12.9 Hypertensive chronic kidney disease with stage 1 through stage 4 chronic kidney disease, or unspecified chronic kidney disease; N18.9 Chronic kidney disease, unspecified; Z74.01 Bed confinement status; Z79.899 Other long term (current) drug therapy; Z88.0 Allergy status to penicillin; Z88.5 Allergy status to narcotic agent
CPT/HCPCS: 99285; 73523; 36415; 96374; 80048; 85025; 96376; J2270 ×2